=== PATIENT | male | born 1990 | race Caucasian/White ===

== ENCOUNTER 2024-11-06 14:51 | Emergency (ER) | payer OTHER, SELFPAY ==
--- NOTE | 2024-11-06 14:57 | ED_ITS ---
<Statement entered by Kj Aguilera MD - 11/07/24 13:56> I was consulted by the NGUYỄN, and we discussed the complexity of the problems being addressed. I approve the treatment and management plan for this patient's care in the emergency department, thus performing a substantive portion of the medical decision making. Kj Aguilera MD Discharge Plan Disposition Patient Disposition: Home, Self-Care Condition: Good Referrals Follow up/Referrals: Provider,Referral, MD [Primary Care Provider, Medical] - See instructions Activity Restrictions/Add. Instructions Additional Instructions/Restrictions: Please return to the emergency department with any worsening signs or symptoms, please keep the area/wound clean, and dry, please return to the emergency department or PCP in 7 to 10 days for suture removal. Clinical Impressions Clinical Impression: Laceration of forearm, right Instructions Patient Instructions: DI for Laceration Repair Print Language Print Language: Russian Discharge ED Provider: Kj Aguilera General Adult HPI General Chief complaint: Wound/Laceration Stated complaint: AO-laceration to right forearm,drug test needed Time Seen by Provider: 11/06/24 14:56 Mode of Arrival: Ambulatory Source of Information: Patient Limitations: No Limitations History of Present Illness HPI narrative: 34-year-old male presents the emergency department with a right forearm laceration that is approximately 5 to 6 cm in length, patient states he was at work and he was utilizing a wrench , when he lost control of the wrench, slicing his forearm on a piece of steel metal bar . Patient has no other acute complaints, takes no other medications at home, has no other relevant past medical history, he is unsure about tetanus prophylaxis. He moves extremity to command, no other injuries. Please note that above description of symptoms, in this electronic medical record under categorization of recalled from ER triage doctor by RN are reflective of an initial nursing assessment, however, is not reflective of my full history and physical exam that was personally taken and clarified. Consequentially, this preceding description of symptoms, which may include the patient's categorized chief complaint in the EMR, do not reflect my personal clinical impression, and the ultimate description of history of present illness and patient stated complaints should be deferred to this section of the note. Unless stated otherwise or congruent with this section of the note, additional signs, symptoms, or incongruence should be interpreted as inaccurate with my clinical impression. Related Data Allergies Allergy/AdvReac Type Severity Reaction Status Date / Time No Known Allergies Allergy Verified 11/06/24 15:15 [facility] Disclaimer: The information contained in this section may have been updated after the patient was seen, as this information can be updated by other users. Social History Smoking Status: Current every day smoker alcohol intake: never current occupational status: other Travel in the last 8 weeks?: None ROS Obtained: Yes All systems reviewed & no additional complaints except as documented Physical Exam General General appearance: alert and in no apparent distress Head Head exam: atraumatic and normocephalic Eye Eye exam: Present PERRL and EOMI ENT ENT exam: Present mucous membranes moist Neck Neck exam: Present normal inspection Chest Chest inspection: Present normal inspection and symmetric chest wall rise Respiratory Respiratory exam: Present normal lung sounds bilaterally; Absent respiratory distress Cardiovascular Cardiovascular exam: Present regular rate and normal rhythm Abdominal Exam Abdominal exam: Present soft; Absent tenderness Extremities Exam Extremities exam: Present normal inspection Neurological Exam Neurological exam: Present alert and oriented X3 Psychiatric Psychiatric exam: Present normal affect Skin Skin exam: Present warm, dry and other (4 to 5 cm laceration involving the lateral aspect of the patient's right forearm) Medical Decision Making Medical Records Medical records reviewed: Yes I reviewed the patient's medical records. Screening: Per USPSTF and CDC recommendations, given the prevalence of disease in our region, it is our hospital?s policy to screen for HIV and viral Hepatitis for all patients aged 18 and over and those with ongoing risk factors. [place] Inquiry Pt receiving controlled substance: No [place] was queried for this patient: No Vital Signs: 11/06/24 15:11 Temperature 98.1 F Temperature Source Oral Pulse Rate [Left Radial] 57 L Respiratory Rate 20 Blood Pressure [Right Arm] 149/70 H Blood Pressure Mean [Right Arm] 96 02 Sat by Pulse Oximetry 95 Oxygen Delivery Method Room Air Lab Data Lab results reviewed: Yes I reviewed the patient's lab results. Orders (Tests/Meds): ED MEDICATIONS Discontinued Medications Generic Name Dose Route Start Last Admin Trade Name Freq PRN Reason Stop Dose Admin Lidocaine HCl 10 ml 11/06/24 15:08 11/06/24 15:22 Lidocaine 1% 10ml Mdv IJ 11/06/24 15:09 10 ml ONCE ONE Administration Tetanus/Reduced Diphtheria/Acell Pertussis 0.5 ml 11/06/24 15:09 11/06/24 15:23 Tet/Diphth/Pert-Adult 0.5ml Syringe IM 11/06/24 15:10 0.5 ml .ONCE ONE Administration Medical Decision Narrative: 34-year-old male presents the emergency department with a right forearm laceration from a steel pipe, differential diagnose include but not limited to, laceration, abrasion among others. I discussed patient case with attending I along with my physician trade sales assistant students, performed the laceration repair, I utilized local analgesia with 1% lidocaine approximately 5 mL, forming a wheal around the patient's 5 cm laceration on the right lateral forearm, this was after copious irrigation with Hibiclens and sterile water, then I and the students performed laceration repair with 5 5-0 nylon sutures, patient tolerated procedure well, wound margins were revitalize, patient was given strict ED return precautions, generalized wound precautions, patient will return to the emergency department or PCP in 7 to 10 days, patient voiced understanding and agreement with current treatment plan/discharge plan. Procedures Laceration Laceration 1: Site: upper extremity Side (If applicable): right Size (cm): 5 Description: linear and clean Depth: involves subcutaneous layer Local Anesthetic: lidocaine 1% Amount of anesthesia used (mL): 5 Pre-repair: wound explored, irrigated extensively, deep structures intact and wound margins revised Skin layer closed with: nylon Size (cm): 5-0 Number of sutures: 5 Technique: simple, interrupted Critical Care Critical Care Time Critical Care Time: No
[2024-11-06 15:11] VITALS: BP 149/70; PULSE 57; RESP 20; TEMP 36.7; O2SAT 95; BMI 20.9
[2024-11-06] MEDS: LIDOCAINE 1% 10ML MDV 10 ML IJ (15:22)
[2024-11-06] MEDS: TET/DIPHTH/PERT-ADULT 0.5ML SYRINGE 0.5 ML IM (15:23)
[2024-11-06 15:57] VITALS: BP 142/73; PULSE 71; RESP 22; TEMP 36.7; O2SAT 98
== END 2024-11-06 15:59 | disposition home or self-care (01) ==
PROVIDERS: Emergency Provider Student in an Organized Health Care Education/Training Program
DX: S51.811A Laceration without foreign body of right forearm, initial encounter (principal); W26.8XXA Contact with other sharp object(s), not elsewhere classified, initial encounter
CPT/HCPCS: 12002; 90471; 90715; 99282; 99283; J2003